=== PATIENT | female | born 1975 | race American Indian/Alaskan Native ===

== ENCOUNTER 2017-02-27 10:34 | Emergency (ER) | payer BC ==
[2017-02-27] MEDS ORDERED: ZOFRAN IV ONE (11:41)
[2017-02-27] MEDS ORDERED: MORPHINE IV ONE (11:41)
--- NOTE | 2017-02-27 11:43 | Emergency Department Report ---
ED Female HPI - General Chief complaint: Urogenital-Female Stated complaint: PASSING BLOOD CLOTS/ NO URINE Time Seen by Provider: 02/27/17 11:27 Source: patient Mode of arrival: Ambulatory Limitations: No Limitations - History of Present Illness Initial comments: 41-year-old female with a past medical history of chronic bladder infections and bladder problems, hypertension, renal sufficiency, and bipolar disorder presents to the hospital complaining of inability to urinate. Patient has had bloody urine with clots for the past 2 weeks. 2 weeks ago she was started on Bactrim and Cipro 7 days but only could tolerate 3-4 days due to nausea. She stopped the antibiotics approximately 2 weeks ago. Today pain worsened with suprapubic pressure and she was unable to urinate at all. Pain moderate to severe in intensity, worse with palpation, constant, no alleviating factors. Patient has required surgical removal of bladder clots and blood transfusions in the past. Last surgical procedure performed in July 2016. Patient's urologist is Consuelo Pablo at [facility]. Patient also states she was having intermittent heavy vaginal bleeding. - Related Data Home Medications Medication Instructions Recorded Confirmed Last Taken ARIPiprazole [Abilify] 10 mg PO DAILY 05/09/16 05/09/16 05/07/16 LORazepam [Ativan] 1 mg PO QHS 05/09/16 05/09/16 05/07/16 Levothyroxine [Synthroid] 125 mcg PO QAM 05/09/16 05/09/16 05/08/16 Lisinopril/Hydrochlorothiazide 1 tab PO DAILY 05/09/16 05/09/16 05/08/16 [Zestoretic 20-12.5 mg] Quetiapine Fumarate [Seroquel] 100 mg PO QHS 05/09/16 05/09/16 05/08/16 Vit D3/Folic Acid/B2/B6/B12 1 tab PO DAILY 05/09/16 05/09/16 05/08/16 [Folgard Tablet] clonazePAM 1 mg PO Q6H PRN 05/09/16 05/09/16 05/08/16 hydrOXYzine PAMOATE [Vistaril] 25 mg PO QHS 05/09/16 05/09/16 05/08/16 Previous Rx's Medication Instructions Recorded Last Taken Type Sulfamethoxazole/Trimethoprim 1 each PO BID #14 tablet 05/09/16 Unknown Rx [Bactrim DS TAB] HYDROcodone/APAP 5-325 [[place] 1 each PO Q6HR PRN #20 tablet 02/27/17 Unknown Rx 5/325] Nitrofurantoin Sunflower/M-Cryst 100 mg PO Q12HR #10 capsule 02/27/17 Unknown Rx [Macrobid CAP] Ondansetron [Zofran Odt] 4 mg PO Q8HR PRN #20 tab.rapdis 02/27/17 Unknown Rx Allergies Allergy/AdvReac Type Severity Reaction Status Date / Time doxycycline Allergy Vomiting Verified 06/29/14 23:18 ED Review of Systems ROS: Stated complaint: PASSING BLOOD CLOTS/ NO URINE Other details as noted in HPI Comment: All other systems reviewed and negative Other: Constitutional: No fevers chills Eyes: No eye pain visual changes ENT: No ear pain or throat pain Neck: Denies pain Respiratory: Denies cough wheezing shortness of breath Cardiovascular: Denies chest pain, palpitations, syncope GI: Deniesvomiting, diarrhea, constipation : Denies dysuria Musculoskeletal: Denies back pain Skin: Denies rash, lesions, erythema Neurologic: Denies headache, numbness, weakness ED Past Medical Hx - Past Medical History Previous Medical History?: Yes Hx Hypertension: Yes Hx Renal Disease: Yes (renal insufficiency) Hx Psychiatric Treatment: Yes (Bipolar, Anxiety,) Additional medical history: recurrent UTI, Thyroid Disease - Surgical History Past Surgical History?: Yes Hx Cholecystectomy: Yes Additional Surgical History: THYROIDECTOMY 06/18/14, right arm, right knee, bladder biopsies, unilateral oophorectomy, tubal ligation - Social History Smoking Status: Never Smoker Substance Use Type: Alcohol - Medications Home Medications: Home Medications Medication Instructions Recorded Confirmed Last Taken Type ARIPiprazole [Abilify] 10 mg PO DAILY 05/09/16 05/09/16 05/07/16 History LORazepam [Ativan] 1 mg PO QHS 05/09/16 05/09/16 05/07/16 History Levothyroxine [Synthroid] 125 mcg PO QAM 05/09/16 05/09/16 05/08/16 History Lisinopril/Hydrochlorothiazide 1 tab PO DAILY 05/09/16 05/09/16 05/08/16 History [Zestoretic 20-12.5 mg] Quetiapine Fumarate [Seroquel] 100 mg PO QHS 05/09/16 05/09/16 05/08/16 History Sulfamethoxazole/Trimethoprim 1 each PO BID #14 tablet 05/09/16 Unknown Rx [Bactrim DS TAB] Vit D3/Folic Acid/B2/B6/B12 1 tab PO DAILY 05/09/16 05/09/16 05/08/16 History [Folgard Tablet] clonazePAM 1 mg PO Q6H PRN 05/09/16 05/09/16 05/08/16 History hydrOXYzine PAMOATE [Vistaril] 25 mg PO QHS 05/09/16 05/09/16 05/08/16 History HYDROcodone/APAP 5-325 [[place] 1 each PO Q6HR PRN #20 tablet 02/27/17 Unknown Rx 5/325] Nitrofurantoin Sunflower/M-Cryst 100 mg PO Q12HR #10 capsule 02/27/17 Unknown Rx [Macrobid CAP] Ondansetron [Zofran Odt] 4 mg PO Q8HR PRN #20 tab.rapdis 02/27/17 Unknown Rx ED Physical Exam - General Limitations: No Limitations - Other Other exam information: General: No limitations, patient is alert in no acute distress Head exam: Atraumatic, normocephalic Eyes exam: Normal appearance, pupils equal reactive to light, extraocular movements intact ENT: Moist mucous membrane, normal oropharynx Neck exam: Normal inspection, full range of motion, no meningismus nontender Respiratory exam: Clear to auscultation bilateral, no wheezes, rales, crackles Cardiovascular: Normal rate and rhythm, normal heart sounds Abdomen: Soft, nondistended, mild suprapubic tenderness, with normal bowel sounds, no rebound, or guarding : Grossly bloody urine and Jackman catheter Extremity: Full range of motion normal inspection no deformity Back: Normal Inspection, full range of motion, no tenderness Neurologic: Alert, oriented x3, cranial nerves intact, no motor or sensory deficit Psychiatric: normal affect, normal mood Skin: Warm, dry, intact ED Course Vital Signs 02/27/17 02/27/17 02/27/17 10:42 12:00 12:30 Temperature 97.9 F Pulse Rate 102 H Respiratory 16 16 16 Rate Blood Pressure 153/99 O2 Sat by Pulse 100 Oximetry 02/27/17 02/27/17 02/27/17 13:40 13:50 14:08 Temperature Pulse Rate Respiratory 20 Rate Blood Pressure 136/90 O2 Sat by Pulse 99 98 Oximetry 02/27/17 14:10 Temperature Pulse Rate 81 Respiratory Rate Blood Pressure O2 Sat by Pulse Oximetry - Reevaluation(s) Reevaluation #1: 02/27/17 13:50 Patient feels better after catheter placement and pain medication. After 2 L of [place] drip irrigation urine is clear without obstruction 02/27/17 14:17 Tachycardia improved prior to discharge - Consultations Consultation #1: 02/27/17 13:[address] Pimentel art conservator physician for Dr. Pablo affiliated with [facility]. He recommends Macrobid 5 days, keep the catheter in place, and to call her urologist Dr. Pablo tomorrow for follow-up this week. ED Medical Decision Making - Lab Data Result diagrams: 02/27/17 11:49 02/27/17 11:49 Lab Results 02/27/17 02/27/17 02/27/17 Range/Units 11:44 11:49 11:49 WBC 13.7 H (4.5-11.0) K/mm3 RBC 4.41 (3.65-5.03) M/mm3 Hgb 10.2 (10.1-14.3) gm/dl Hct 33.2 (30.3-42.9) % MCV 75 L (79-97) fl MCH 23 L (28-32) pg MCHC 31 (30-34) % RDW 18.2 H (13.2-15.2) % Plt Count 492 H (140-440) K/mm3 Lymph % (Auto) 23.3 (13.4-35.0) % Sunflower % (Auto) 4.6 (0.0-7.3) % Eos % (Auto) 2.7 (0.0-4.3) % Baso % (Auto) 0.6 (0.0-1.8) % Lymph # 3.2 (1.2-5.4) K/mm3 Sunflower # 0.6 (0.0-0.8) K/mm3 Eos # 0.4 (0.0-0.4) K/mm3 Baso # 0.1 (0.0-0.1) K/mm3 Seg Neutrophils % 68.8 (40.0-70.0) % Seg Neutrophils # 9.4 H (1.8-7.7) K/mm3 Sodium 137 (137-145) mmol/L Potassium 3.7 (3.6-5.0) mmol/L Chloride 97.5 L (98-107) mmol/L Carbon Dioxide 25 (22-30) mmol/L Anion Gap 18 mmol/L BUN 18 H (7-17) mg/dL Creatinine 1.9 H (0.7-1.2) mg/dL Estimated GFR 35 ml/min BUN/Creatinine Ratio 9.47 % Glucose 115 H (65-100) mg/dL Calcium 9.0 (8.4-10.2) mg/dL HCG, Quant (0-4) mIU/mL Urine Color Red (Yellow) Urine Turbidity Cloudy (Clear) Urine pH 7.0 (5.0-7.0) Ur Specific [place] 1.014 (1.003-1.030) Urine Protein 100 mg/dl (Negative) mg/dL Urine Glucose (UA) 50 (Negative) mg/dL Urine Ketones Neg (Negative) mg/dL Urine Blood Mod (Negative) Urine Nitrite Neg (Negative) Urine Bilirubin Neg (Negative) Urine Urobilinogen < 2.0 (<2.0) mg/dL Ur Leukocyte Esterase Mod (Negative) Urine WBC (Auto) 110.0 H (0.0-6.0) /HPF Urine RBC (Auto) > 182.0 (0.0-6.0) /HPF Urine Bacteria (Auto) 1+ (Negative) /HPF 02/27/17 Range/Units 11:55 WBC (4.5-11.0) K/mm3 RBC (3.65-5.03) M/mm3 Hgb (10.1-14.3) gm/dl Hct (30.3-42.9) % MCV (79-97) fl MCH (28-32) pg MCHC (30-34) % RDW (13.2-15.2) % Plt Count (140-440) K/mm3 Lymph % (Auto) (13.4-35.0) % Sunflower % (Auto) (0.0-7.3) % Eos % (Auto) (0.0-4.3) % Baso % (Auto) (0.0-1.8) % Lymph # (1.2-5.4) K/mm3 Sunflower # (0.0-0.8) K/mm3 Eos # (0.0-0.4) K/mm3 Baso # (0.0-0.1) K/mm3 Seg Neutrophils % (40.0-70.0) % Seg Neutrophils # (1.8-7.7) K/mm3 Sodium (137-145) mmol/L Potassium (3.6-5.0) mmol/L Chloride (98-107) mmol/L Carbon Dioxide (22-30) mmol/L Anion Gap mmol/L BUN (7-17) mg/dL Creatinine (0.7-1.2) mg/dL Estimated GFR ml/min BUN/Creatinine Ratio % Glucose (65-100) mg/dL Calcium (8.4-10.2) mg/dL HCG, Quant < 2 (0-4) mIU/mL Urine Color (Yellow) Urine Turbidity (Clear) Urine pH (5.0-7.0) Ur Specific [place] (1.003-1.030) Urine Protein (Negative) mg/dL Urine Glucose (UA) (Negative) mg/dL Urine Ketones (Negative) mg/dL Urine Blood (Negative) Urine Nitrite (Negative) Urine Bilirubin (Negative) Urine Urobilinogen (<2.0) mg/dL Ur Leukocyte Esterase (Negative) Urine WBC (Auto) (0.0-6.0) /HPF Urine RBC (Auto) (0.0-6.0) /HPF Urine Bacteria (Auto) (Negative) /HPF - Differential Diagnosis UTI, hematuria, bladder cancer, cystitis, urinary retention, renal ins Critical Care Time: No Critical care attestation.: If time is entered above; I have spent that time in minutes in the direct care of this critically ill patient, excluding procedure time. ED Disposition Clinical Impression: Urine retention, Hemorrhagic cystitis, Chronic renal insufficiency, Urinary tract infection Disposition: OP ADMIT IP TO THIS HOSP Is pt being admited?: No Condition: Stable Instructions: Urinary Tract Infection in Women (ED), Acute Hematuria (ED), Impaired Kidney Function (ED) Additional Instructions: Take the medications as prescribed. Call your Urologist tomorrow for close follow-up this week. Keep Jackman catheter in place until urology removal. Prescriptions: HYDROcodone/APAP 5-325 [[place] 5/325] 1 each PO Q6HR PRN #20 tablet PRN Reason: Pain Nitrofurantoin Sunflower/M-Cryst [Macrobid CAP] 100 mg PO Q12HR #10 capsule Ondansetron [Zofran Odt] 4 mg PO Q8HR PRN #20 tab.rapdis PRN Reason: Nausea And Vomiting Referrals: MD Samy [Other] - 3-5 Days (Your urologist) Time of Disposition: 13:54
[2017-02-27] MEDS ORDERED: NACL 0.9% IR SCH (12:00)
[2017-02-27 12:07] LABS: Bacteria,Urine 1+ /HPF (Negative); Bilirubin,Urine NEG (Negative); Blood,Urine MOD (Negative); Ketones,Urine NEG (Negative); Leukocyte Esterase,Urine MOD (Negative); Nitrite,Urine NEG (Negative); Urobilinogen,Urine < 2.0 mg/dL (<2.0)
[2017-02-27 12:12] LABS: Basophils % (Auto) 0.6 % (0.0-1.8); Eosinophils % (Auto) 2.7 % (0.0-4.3); Hematocrit 33.2 % (30.3-42.9); Hemoglobin 10.2 gm/dl (10.1-14.3); Mean Corpuscular HGB Conc 31 % (30-34); Mean Corpuscular Volume 75 fl (79-97); Platelet Count 492 K/mm3 (140-440); Red Blood Count 4.41 M/mm3 (3.65-5.03); Red Cell Distribution Width 18.2 % (13.2-15.2); White Blood Count 13.7 K/mm3 (4.5-11.0)
[2017-02-27 12:16] LABS: RBC,Urine > 182.0 /HPF (0.0-6.0)
[2017-02-27 12:18] LABS: Mean Corpuscular Hemoglobin 23 pg (28-32)
[2017-02-27 12:24] LABS: BUN/Creatinine Ratio 9.47; Chloride 97.5 mmol/L (98-107); Potassium 3.7 mmol/L (3.6-5.0)
[2017-02-27] MEDS ORDERED: MACROBID PO ONE (13:48)
[2017-02-27] MEDS ORDERED: PERCOCET 5/325 PO ONE (13:59)
[2017-02-27 14:09] VITALS: BP 136/90
== END 2017-02-27 14:29 | disposition admitted as inpatient to this hospital (09) ==
LOC: ED 10:34
DX: R33.9 Retention of urine, unspecified (principal); N30.90 Cystitis, unspecified without hematuria; N39.0 Urinary tract infection, site not specified; I12.9 Hypertensive chronic kidney disease with stage 1 through stage 4 chronic kidney disease, or unspecified chronic kidney disease; N18.9 Chronic kidney disease, unspecified; F31.9 Bipolar disorder, unspecified; F41.9 Anxiety disorder, unspecified; Z90.721 Acquired absence of ovaries, unilateral; Z88.1 Allergy status to other antibiotic agents
CPT/HCPCS: 36415; 51702; 80048; 81001; 84702; 85025; 87086; 96374; 96375; 99283; J2270; J2405

== ENCOUNTER 2017-03-08 10:29 | Outpatient (CLI) | payer BC ==
--- NOTE | 2017-03-08 14:39 | Ultrasound Report ---
ULTRASOUND RENAL BILATERAL HISTORY: Renal insufficiency. TECHNIQUE: transabdominal ultrasound with color Doppler interrogation. FINDINGS: Both kidneys are slightly echogenic with a lobulated contour. This suggests mild nonspecific renal parenchymal disease. There is no evidence for cyst, mass or shadowing calculus. Minimal to mild bilateral hydronephrosis is suggested on today's exam. The bladder is essentially empty and poorly evaluated. IMPRESSION: Echogenic kidneys consistent with renal parenchymal disease. Mild bilateral hydronephrosis versus urinary stasis is noted on today's exam.
== END 2017-03-08 10:30 | disposition home or self-care (01) ==
LOC: US 10:29
PROVIDERS: ATTEND Urology
DX: N28.9 Disorder of kidney and ureter, unspecified (principal); I10 Essential (primary) hypertension
CPT/HCPCS: 76770